=== PATIENT | female | born 1945 | race Hispanic/Latino ===

== ENCOUNTER 2018-04-20 05:32 | Day surgery (SDC) | payer MEDICARE, MEDICAID ==
[2018-04-20] MEDS ORDERED: PROPARACAINE 0.5% OPHTH SOL 15 ML BTTL ONE (05:58)
[2018-04-20] MEDS ORDERED: TROP 1%/CYCLOPEN 1%/PHENYL 2% DROPS ONE (05:58)
[2018-04-20] MEDS ORDERED: TOBRAMYCIN SULF 0.3 % OPHT SOL 1 DROP ONE (07:00)
[2018-04-20] MEDS ORDERED: PROPARACAINE 0.5% OPHTH SOL 15 ML BTTL LEFT_EYE ONE (11:15)
== END 2018-04-20 11:28 | disposition home or self-care (01) ==
LOC: AMB 05:32
PROVIDERS: ATTEND Ophthalmology
DX: H26.492 Other secondary cataract, left eye (principal)